=== PATIENT | male | born 1955 | race Caucasian/White ===

== ENCOUNTER 2023-05-30 14:01 | Observation (INO) | payer MEDICARE ==
[2023-05-30] MEDS ORDERED: ONDANSETRON 4 MG/2 ML VIAL IVP STA (14:34)
[2023-05-30] MEDS ORDERED: HYDROmorphone 0.5 MG/0.5 ML SYRINGE IVP STA (14:35)
--- NOTE | 2023-05-30 14:39 | ED ---
Abdominal Pain HPI - General Chief Complaint: Abdominal Pain Stated Complaint: Dizziness, Need Drainage for Liver Time Seen by Provider: 05/30/23 14:32 Source: patient, RN notes reviewed, old records reviewed Mode of arrival: ambulatory Limitations: no limitations - History of Present Illness Initial Comments: This is a 67-year-old male to the emergency department for evaluation today. Patient is today for evaluation regards to need for paracentesis. No pain weakness overall dehydration not feeling well. MD Complaint: abdominal pain -: hour(s) Location: diffuse Radiation: none Migration to: no migration Severity: moderate Severity scale (1-10): 7 Quality: sharp Consistency: constant Improves With: eating Worsens With: nothing Associated Symptoms: nausea, vomiting Treatments Prior to Arrival: other (0) - Related Data Previous Rx's Medication Instructions Recorded Furosemide [Lasix] 40 mg PO DAILY #30 tablet 06/01/23 Metoprolol Succinate (ER) [Toprol 50 mg PO BID #60 tab 06/01/23 XL] Midodrine [ProAmatine] 5 mg PO TID PRN #60 tablet 06/01/23 Spironolactone [Aldactone] 50 mg PO DAILY #30 tab 06/01/23 Allergies Allergy/AdvReac Type Severity Reaction Status Date / Time No Known Allergies Allergy Verified 05/30/23 17:39 Review of Systems ROS Statement: Those systems with pertinent positive or pertinent negative responses have been documented in the HPI. ROS Other: All systems not noted in ROS Statement are negative. Past Medical History Past Medical History: Hypertension, Liver Disease History of Any Multi-Drug Resistant Organisms: None Reported Past Surgical History: Back Surgery Past Psychological History: No Psychological Hx Reported Smoking Status: Current every day smoker Past Alcohol Use History: None Reported, Abuse Past Drug Use History: None Reported - Past Family History Father Family Medical History: Coronary Artery Disease (CAD) General Exam Limitations: no limitations General appearance: alert, in no apparent distress Head exam: Present: atraumatic, normocephalic, normal inspection Eye exam: Present: normal appearance, PERRL, EOMI. Absent: scleral icterus, con junctival injection, periorbital swelling ENT exam: Present: normal exam, mucous membranes moist Neck exam: Present: normal inspection. Absent: tenderness, meningismus, lymphadenopathy Respiratory exam: Present: normal lung sounds bilaterally. Absent: respiratory distress, wheezes, rales, rhonchi, stridor Cardiovascular Exam: Present: regular rate, normal rhythm, normal heart sounds. Absent: systolic murmur, diastolic murmur, rubs, gallop, clicks GI/Abdominal exam: Present: soft, normal bowel sounds. Absent: distended, tenderness, guarding, rebound, rigid Extremities exam: Present: normal inspection, full ROM, normal capillary refill. Absent: tenderness, pedal edema, joint swelling, calf tenderness Back exam: Present: normal inspection Neurological exam: Present: alert, oriented X3, CN II-XII intact Psychiatric exam: Present: normal affect, normal mood Skin exam: Present: warm, dry, intact, normal color. Absent: rash Course Vital Signs 05/30/23 05/30/23 05/30/23 14:06 19:05 22:11 Temperature 98.0 F 98.7 F 97.8 F Pulse Rate 90 82 81 Pulse Rate [ Pulse Oximetery ] Respiratory 18 16 16 Rate Blood Pressure 151/106 152/94 141/95 Blood Pressure [Left Arm] O2 Sat by Pulse 99 98 99 Oximetry 05/31/23 05/31/23 05/31/23 04:17 08:00 08:28 Temperature 98.2 F 98 F Pulse Rate 95 Pulse Rate [ 84 84 Pulse Oximetery ] Respiratory 18 16 16 Rate Blood Pressure 151/89 Blood Pressure 137/93 [Left Arm] O2 Sat by Pulse 95 98 Oximetry - Reevaluation(s) Reevaluation #1: 05/30/23 20:46 Record is reviewed Reevaluation #2: 05/30/23 20:46 Patient symptoms are unchanged here in the ER Reevaluation #3: 05/30/23 20:46 Patient informed of results and questions answered Reevaluation #4: 05/30/23 20:07 Was pt. sent in by a medical professional or institution (, PA, [employer], urgent care, hospital, or care home...) When possible be specific @ -no Did you speak to anyone other than the patient for history (EMS, parent, family, police, friend...)? What history was obtained from this source @ -no Did you review nursing and triage notes (agree or disagree)? Why? @ -agree Are old charts reviewed (outside hosp., previous admission, EMS record, old EKG, old radiological studies, urgent care reports/EKG's, care home records)? Report findings @ -yes Differential Diagnosis (chest pain, altered mental status, abdominal pain women, abdominal pain men, vaginal bleeding, weakness, fever, dyspnea, syncope, headache, dizziness, GI bleed, back pain, seizure, CVA, palpatations, mental health, musculoskeletal)? @ -prior EKG interpreted by me (3pts min.). @ -no X-rays interpreted by me (1pt min.). @ -no CT interpreted by me (1pt min.). @ -no U/S interpreted by me (1pt. min.). @ -no What testing was considered but not performed or refused? (CT, X-rays, U/S, labs)? Why? @ -none What meds were considered but not given or refused? Why? @ -none Did you discuss the management of the patient with other professionals (professionals i.e. , PA, [employer], lab, RT, psych nurse, director of social work, drafting supervisor, teacher, air [employer] senior officer, telephonic nurse case manager)? Give summary @ -no Was smoking cessation discussed for >3mins.? @ -no Was critical care preformed (if so, how long)? @ -no Were there social determinants of health that impacted care today? How? (Homelessness, low income, unemployed, alcoholism, drug addiction, transportation, low edu. Level, literacy, decrease access to med. care, custodial, rehab)? @ -none Was there de-escalation of care discussed even if they declined (Discuss DNR or withdrawal of care, Hospice)? DNR status @ -no What co-morbidities impacted this encounter? (DM, HTN, Smoking, COPD, CAD, Cancer, CVA, ARF, Chemo, Hep., AIDS, mental health diagnosis, sleep apnea, morbid obesity)? @ -none Was patient admitted / discharged? Hospital course, mention meds given and route, prescriptions, significant lab abnormalities, going to OR and other pertinent info. @ - 67 male will be admitted for a for paracentesis as well as need for pain control and symptom management. Admitted Undiagnosed new problem with uncertain prognosis? @ -no Drug Therapy requiring intensive monitoring for toxicity (Heparin, Nitro, Insulin, Cardizem)? @ -no Were any procedures done? @ -no Diagnosis/symptom? @ -Abdominal ascites need for paracentesis Acute, or Chronic, or Acute on Chronic? @ -Acute Uncomplicated (without systemic symptoms) or Complicated (systemic symptoms)? @ -Complicated Side effects of treatment? @ -no Exacerbation, Progression, or Severe Exacerbation? @ -exacerbation Poses a threat to life or bodily function? How? (Chest pain, USA, AR, pneumonia, PE, COPD, DKA, ARF, appy, cholecystitis, CVA, Diverticulitis, Homicidal, Suicidal, threat to staff... and all critical care pts) @ -yes with significant liver cirrhosis and chronic disease Reevaluation #5: 05/30/23 20:09 Differential Abdominal Pain Men: Appendicitis, cholecystitis, diverticulosis, ischemic bowel, pancreatitis, hepatitis, UTI, gastroenteritis, AAA, incarcerated hernia, bowel obstruction, constipation, inflammatory bowel, hepatitis, peptic ulcer disease, splenic infarction, perforated viscus, testicular torsion, this is not meant to be an all-inclusive list - Consultations Consultation #1: Spoke with [facility] were agrees to admit this patient Medical Decision Making - Medical Decision Making 67 male will be admitted for a for paracentesis as well as need for pain control and symptom management. - Lab Data Result diagrams: 05/30/23 15:00 06/01/23 13:36 Lab Results 05/30/23 05/30/23 Range/Units 15:00 15:00 WBC 10.7 H (3.8-10.6) k/uL RBC 3.89 L (4.30-5.90) m/uL Hgb 12.2 L (13.0-17.5) gm/dL Hct 38.0 L (39.0-53.0) % MCV 97.6 (80.0-100.0) fL MCH 31.3 (25.0-35.0) pg MCHC 32.1 (31.0-37.0) g/dL RDW 14.2 (11.5-15.5) % Plt Count 459 H (150-450) k/uL MPV 7.2 Neutrophils % 73 % Lymphocytes % 17 % Monocytes % 6 % Eosinophils % 2 % Basophils % 0 % Neutrophils # 7.8 H (1.3-7.7) k/uL Lymphocytes # 1.8 (1.0-4.8) k/uL Monocytes # 0.6 (0-1.0) k/uL Eosinophils # 0.2 (0-0.7) k/uL Basophils # 0.0 (0-0.2) k/uL Plasma Lactic Acid Rolo 1.8 (0.7-2.0) mmol/L Disposition Clinical Impression: Abdominal pain, Ascites Disposition: ADMITTED IP TO THIS HOSP Condition: Fair Is patient prescribed a controlled substance at d/c from ED?: No Time of Disposition: 18:00
[2023-05-30 16:06] LABS: Basophils % (A) 0 %; Eosinophils # (A) 0.2 k/uL (0-0.7); Eosinophils % (A) 2 %; HGB 12.2 gm/dL (13.0-17.5); Lymphocytes # (A) 1.8 k/uL (1.0-4.8); Lymphocytes % (A) 17 %; MCH 31.3 pg (25.0-35.0); MCHC 32.1 g/dL (31.0-37.0); MCV 97.6 fL (80.0-100.0); Mean Platelet Volume 7.2; Monocytes # (A) 0.6 k/uL (0-1.0); Monocytes % (A) 6 %; Neutrophils # (A) 7.8 k/uL (1.3-7.7); Neutrophils % (A) 73 %; Platelet Count 459 k/uL (150-450); RBC 3.89 m/uL (4.30-5.90); RDW 14.2 % (11.5-15.5); WBC 10.7 k/uL (3.8-10.6)
[2023-05-30] MEDS ORDERED: NALOXONE 0.4 MG/ML 1 ML VIAL IV PRN (16:57)
[2023-05-30] MEDS ORDERED: ONDANSETRON 4 MG/2 ML VIAL IVP PRN (16:57)
[2023-05-30] MEDS ORDERED: MORPHINE SULFATE 4 MG/ML SYRINGE IV PRN (16:57)
[2023-05-30 17:42] LABS: ALT 10 U/L (4-49); African American GFR (CKD) >90 (>60 ml/min/1.73 sqM); Amylase 95 U/L (30-110); Anion Gap 8 mmol/L; Blood Urea Nitrogen 19 mg/dL (9-20); Calcium 9.1 mg/dL (8.4-10.2); Carbon Dioxide 24 mmol/L (22-30); Chloride 102 mmol/L (98-107); Glucose 92 mg/dL (74-99); Lipase 238 U/L (23-300); Non-African American GFR(CKD) >90 (>60 ml/min/1.73 sqM); Sodium 134 mmol/L (137-145); Total Bilirubin 0.5 mg/dL (0.2-1.3); Total Protein 6.9 g/dL (6.3-8.2)
[2023-05-30 18:03] LABS: AST 28 U/L (17-59); Alkaline Phosphatase 59 U/L (38-126); Potassium 4.5 mmol/L (3.5-5.1)
[2023-05-30 18:14] LABS: INR 1.1 (<1.2); Partial Thromboplastin Time 22.9 sec (22.0-30.0); Prothrombin Time 11.5 sec (10.0-12.5)
--- NOTE | 2023-05-30 18:42 | US ---
EXAMINATION TYPE: US abdomen limited DATE OF EXAM: 05/30/2023 COMPARISON: NONE CLINICAL INDICATION: Male, 67 years old with history of ascites; ascites check. Pt states para done april Technique: Four-quadrant ultrasound imaging for ascites. FINDINGS: Severe amount of anechoic ascites Seen throughout all 4 quadrants. IMPRESSION: Large amount of ascites.
[2023-05-31] MEDS ORDERED: traMADol 50 MG TAB PO PRN (12:20)
--- NOTE | 2023-05-31 12:26 | P.HPIM ---
History of Present Illness 67-year-old pleasant male with known history of alcoholic cirrhosis came in with ascites abdominal distention and pain significant abdominal distention without any fever patient doesn't take any diuretics at home and his only medication is metoprolol patient is presently not tachycardic. Patient will undergo paracentesis today patient is volume overloaded with ascites in the bilateral lower extremity edema secondary to cirrhosis. Patient doesn't take any diuretics at home blood pressure is within normal limits REVIEW OF SYSTEMS: CONSTITUTIONAL: No fever, no malaise, no fatigue. HEENT: No recent visual problems or hearing problems. Denied any sore throat. CARDIOVASCULAR: No chest pain, orthopnea, PND, no palpitations, no syncope. PULMONARY: No shortness of breath, no cough, no hemoptysis. GASTROINTESTINAL: No diarrhea, no nausea, no vomiting, no abdominal pain. NEUROLOGICAL: No headaches, no weakness, no numbness. HEMATOLOGICAL: Denies any bleeding or petechiae. GENITOURINARY: Denies any burning micturition, frequency, or urgency. MUSCULOSKELETAL/RHEUMATOLOGICAL: Denies any joint pain, swelling, or any muscle pain. ENDOCRINE: Denies any polyuria or polydipsia. The rest of the 14-point review of systems is negative. PHYSICAL EXAMINATION: GENERAL: The patient is alert and oriented x3, not in any acute distress. Thin built male HEENT: Pupils are round and equally reacting to light. EOMI. No scleral icterus. No conjunctival pallor. Normocephalic, atraumatic. No pharyngeal erythema. No thyromegaly. CARDIOVASCULAR: S1 and S2 present. No murmurs, rubs, or gallops. PULMONARY: Chest is clear to auscultation, no wheezing or crackles. ABDOMEN: Soft, nontender, distended with ascites, normoactive bowel sounds. No palpable organomegaly. MUSCULOSKELETAL: No joint swelling or deformity. EXTREMITIES: No cyanosis, clubbing, or pedal edema. NEUROLOGICAL: Gross neurological examination did not reveal any focal deficits. SKIN: No rashes. Assessment and plan -Volume overload secondary to cirrhosis: Patient undergo paracentesis patient was started on IV Lasix and Aldactone monitoring blood pressure and electrolytes -Alcoholic cirrhosis, supportive care as mentioned above -Hypertension patient will be resumed on beta alonso which she is taking at home -Hypervolemic hyponatremia expected to improve with IV Lasix. DVT prophylaxis: Early ambulation Past Medical History Past Medical History: Hypertension, Liver Disease History of Any Multi-Drug Resistant Organisms: None Reported Past Surgical History: Back Surgery Additional Past Surgical History / Comment(s): paracentesis in april 2023 at [facility] Past Anesthesia/Blood Transfusion Reactions: No Reported Reaction Past Psychological History: No Psychological Hx Reported Smoking Status: Current every day smoker Past Alcohol Use History: None Reported, Abuse Past Drug Use History: None Reported - Past Family History Father Family Medical History: Coronary Artery Disease (CAD) Medications and Allergies Home Medications Medication Instructions Recorded Confirmed Type Metoprolol Succinate (ER) [Toprol 100 mg PO DAILY 05/30/23 05/30/23 History Xl] Allergies Allergy/AdvReac Type Severity Reaction Status Date / Time No Known Allergies Allergy Verified 05/30/23 17:39 Physical Exam Vitals: Vital Signs Temp Pulse Pulse Resp BP BP Pulse Ox 05/31/23 08:28 98 F 84 16 137/93 98 05/31/23 08:00 84 16 05/31/23 04:17 98.2 F 95 18 151/89 95 05/30/23 22:11 97.8 F 81 16 141/95 99 05/30/23 19:05 98.7 F 82 16 152/94 98 05/30/23 14:06 98.0 F 90 18 151/106 99 Intake and Output 05/30/23 05/31/23 05/31/23 22:59 06:59 14:59 Other: Weight 56.699 kg Results CBC & Chem 7: 05/30/23 15:00 05/30/23 17:08 Labs: Abnormal Lab Results - Last 24 Hours (Table) 05/30/23 05/30/23 Range/Units 15:00 17:08 WBC 10.7 H (3.8-10.6) k/uL RBC 3.89 L (4.30-5.90) m/uL Hgb 12.2 L (13.0-17.5) gm/dL Hct 38.0 L (39.0-53.0) % Plt Count 459 H (150-450) k/uL Neutrophils # 7.8 H (1.3-7.7) k/uL Sodium 134 L (137-145) mmol/L Albumin 3.0 L (3.5-5.0) g/dL Thrombosis Risk Factor Assmnt - Choose All That Apply Each Factor Represents 1 point: Swollen legs (current) Each Risk Factor Represents 2 Points: Age 61-74 years Thrombosis Risk Factor Assessment Total Risk Factor Score: 3 Thrombosis Risk Factor Assessment Level: Moderate Risk
[2023-05-31] MEDS ORDERED: METOPROLOL SUCCINATE (ER) 50 MG TAB.ER.24H PO SCH (12:30)
[2023-05-31] MEDS: FUROSEMIDE 10 MG/ML 4 ML VIAL IV SCH ×2 (17:16→21:53)
--- NOTE | 2023-05-31 18:09 | US ---
EXAMINATION TYPE: US paracentesis abd w/image DATE OF EXAM: 05/31/2023 CLINICAL HISTORY: 67-year-old male with liver disease, large volume ascites, referred for therapeuti c paracentesis. The procedure was discussed with the patient. The risks, complications, benefits, and alternatives we re discussed and any questions were answered. Informed consent was obtained. The patient was placed s upine on the ultrasound table and prepped and draped in the usual sterile fashion. All elements of maximal barrier technique were utilized. Ultrasound was utilized to determine the precise skin entry site along the right lower quadrant/left flank. A 6 [place] safety centesis catheter and trocar technique was utilized to access the ascites collectio n in the right lower quadrant. Approximately 6.8 liters of straw-colored fluid was removed. Fluid collection was stopped prematurely due to patient being tired in bed and decreasing oxygen saturations. Catheter was removed, hemostasis obtained, and a dressing placed. The patient was stable throughout the procedure and remained stable upon discharge from Department of Radiology. IMPRESSION: Successful therapeutic paracentesis under ultrasound guidance. Only 6.8 L of fluid removed. Collectio n was prematurely stopped due to the patient becoming tired lying in bed and due to decreasing oxygen saturations.
[2023-05-31] MEDS: METOPROLOL SUCCINATE (ER) 50 MG TAB.ER.24H PO SCH (20:07)
[2023-06-01] MEDS ORDERED: SPIRONOLACTONE 25 MG TAB PO SCH (09:00)
[2023-06-01] MEDS: FUROSEMIDE 10 MG/ML 4 ML VIAL IV SCH (09:07)
[2023-06-01] MEDS: METOPROLOL SUCCINATE (ER) 50 MG TAB.ER.24H PO SCH (09:07)
[2023-06-01] MEDS: ALBUMIN HUMAN 25% 50 ML in EMPTY BAG 1 BAG IVPB SCH ×2 (09:40→10:48)
[2023-06-01] MEDS ORDERED: MIDODRINE 5 MG TAB PO STA (14:04)
[2023-06-01 14:17] VITALS: BP 89/56; PULSE 85; RESP 16; TEMP 97.8
[2023-06-01 14:23] LABS: ALT 9 U/L (4-49); AST 20 U/L (17-59); African American GFR (CKD) >90 (>60 ml/min/1.73 sqM); Albumin 2.2 g/dL (3.5-5.0); Alkaline Phosphatase 46 U/L (38-126); Anion Gap 7 mmol/L; Blood Urea Nitrogen 16 mg/dL (9-20); Calcium 8.2 mg/dL (8.4-10.2); Carbon Dioxide 29 mmol/L (22-30); Chloride 98 mmol/L (98-107); Glucose 124 mg/dL (74-99); Non-African American GFR(CKD) >90 (>60 ml/min/1.73 sqM); Potassium 3.4 mmol/L (3.5-5.1); Sodium 134 mmol/L (137-145); Total Bilirubin 0.5 mg/dL (0.2-1.3)
--- NOTE | 2023-06-04 05:55 | P.DS ---
Providers Date of admission: 05/30/23 16:58 Expected date of discharge: 06/01/23 Attending physician: Yung Quick Primary care physician: Stated None Hospital Course: Final diagnosis -Volume overload secondary to cirrhosis:status post paracentesis of approx 6 L removed -Alcoholic cirrhosis -Hypertension -Hypervolemic hyponatremia -gi prophylaxis -DVT prophylaxis -full code Discharge disposition Patient is being discharged in a stable condition with guarded prognosis to home. Patient will follow-up with his pcp in the outpatient setting upon discharge. Patient is to continue with outpatient follow up with GI as scheduled. Total time taken is greater than 35 minutes. Hospital course This is a 67-year-old male who was recently admitted with abdominal distention with ascites and being closely monitored. Patient evaluated by IR and underwent paracentesis of approx 6L and had post albumin. Blood pressure on the lower side and will be given midodrine as needed and instructed to follow up with GI and pcp outpatient. Patient also to continue on lasix and aldactone with repeat labs in the next few days. Patient reports to feeling improved and would like to go home. Currently no reports of chest pain, shortness of breath, or palpitations. Patient denies any dizziness or lightheadness. Patient is afebrile. No reports of nausea or vomiting and patient is tolerating diet. Patient will be discharged home today. Physical exam: Gen: This is a 67 year old who is awake, alert and oriented x3, thin built, well developed. appears older than stated age. HEENT: Head is atraumatic, normocephalic. Pupils equal, round. Sclerae is anicteric. NECK: Supple. No JVD. No lymphadenopathy. No thyromegaly. LUNGS: Clear to auscultation. No wheezes or rhonchi. No intercostal retractions. HEART: Regular rate and rhythm. No murmur. ABDOMEN: Soft. Bowel sounds are present. No masses. No tenderness. less distended. EXTREMITIES: No pedal edema. No calf tenderness. NEUROLOGICAL: Patient is awake, alert and oriented x3. Cranial nerves 2 through 12 are grossly intact. Please refer to medication reconciliation sheet for a list of medications. The impression and plan of care has been dictated by Codi Barton, Nurse Practitioner as directed. Dr. Ryan MD I have performed a history and examination and MDM of this patient, discussed the same with the dictator, and agree with the dictator's assessment and plan as written ,documented as a scribe. Based on total visit time, I have performed more than 50% of the visit. Patient Condition at Discharge: Fair Plan - Discharge Summary Discharge Rx Participant: No New Discharge Prescriptions: New Spironolactone [Aldactone] 50 mg PO DAILY #30 tab Furosemide [Lasix] 40 mg PO DAILY #30 tablet Metoprolol Succinate (ER) [Toprol XL] 50 mg PO BID #60 tab Midodrine [ProAmatine] 5 mg PO TID PRN #60 tablet PRN Reason: Hypotension Discontinued Metoprolol Succinate (ER) [Toprol Xl] 100 mg PO DAILY Discharge Medication List Furosemide [Lasix] 40 mg PO DAILY #30 tablet 06/01/23 [Rx] Metoprolol Succinate (ER) [Toprol XL] 50 mg PO BID #60 tab 06/01/23 [Rx] Midodrine [ProAmatine] 5 mg PO TID PRN #60 tablet 06/01/23 [Rx] Spironolactone [Aldactone] 50 mg PO DAILY #30 tab 06/01/23 [Rx] Follow up Appointment(s)/Referral(s): Nonstaff,Physician [REFERRING] - 1-2 days Ambulatory/Diagnostic Orders: Basic Metabolic Panel [LAB.AMB] Time Frame: 2 Days, Location: None Selected Patient Instructions/Handouts: Ascites (DC) Activity/Diet/Wound Care/Special Instructions: Activity Limited until follow-up Follow-up with primary care provider on discharge Continue taking medications as prescribed Repeat labs in the next few days to monitor kidney functions Follow-up with GI and nephrology outpatient use midodrine 5mg as need for low blood pressure. If systolic bp is 90 or less Discharge Disposition: HOME SELF-CARE
--- NOTE | 2023-06-08 23:47 | CDI ---
Documentation Clarification Form Date: 06/08/2023 11:30:16 PM From: Sarai Carrera RN, CCDS Email: [email or web address] Admit Date: 05/30/2023 04:58:00 PM Patient Name: Mj Velazquez Visit Number: [id number] Discharge Date: 06/01/2023 03:24:00 PM ATTENTION: The Clinical Documentation Specialists (CDI) and [facility] Coding Staff appreciate your assistance in clarifying documentation. Please respond to the clarification below the line at the bottom and electronically sign. The CDI & [facility] Coding staff will review the response and follow-up if needed. Please note: Queries are made part of the Legal Health Record. If you have any questions, please contact the author of this message via ITS. Dr. Yung Quick The patients principal diagnosis - the diagnosis that was chiefly responsible for the admission - has not been clearly identified and clarification is requested. The patient presented in Observation status on 05/30 for paracentesis. Admitted to inpatient on 06/01. History/Risk factors: 67-year-old male with known history of alcoholic cirrhosis came in with ascites, abdominal distention, pain and significant abdominal distention without any fever. Clinical Indicators: 05/31 Procedure: Successful therapeutic paracentesis under ultrasound guidance. Only 6.8 L of fluid removed. Collection was prematurely stopped due to the patient becoming tired lying in bed and due to decreasing oxygen saturations. The patient was stable throughout the procedure and remained stable upon discharge from Department of Radiology. 06/01 Discharge summary: Blood pressure on the lower side and will be given Midodrine as needed and instructed to follow up with GI and PCP outpatient. Patient also to continue on Lasix and Aldactone with repeat labs in the next few days. Patient reports to feeling improved and would like to go home. Use Midodrine 5mg as needed for low blood pressure if systolic BP is 90 or less Vital Signs: 05/31 pox 90%; 06/01 pox 93%; 05/30 BP 151/106; 05/31 BP 151/89; 06/01 BP 84/52-89/56 Treatment: O2 2-3LNC 05/31-06/01; IV Albumin x2 on 06/01; Midodrine 10mg po x1 on 06/01 In your professional opinion, can you please clarify which diagnosis, after study, was the reason chiefly responsible for the inpatient admission? [ ] Hypotension [ ] Alcoholic cirrhosis with ascites [ ] Respiratory insufficiency [ ] Other, please specify [ ] Unable to determine Send this to. Dr. Abdelrahman HLIL
--- NOTE | 2023-06-12 11:57 | CDI ---
Documentation Clarification Form Date: 06/08/2023 11:30:00 PM From: Sarai Carrera Admit Date: 05/30/2023 04:58:00 PM Patient Name: Mj Velazquez Visit Number: [id number] Discharge Date: 06/01/2023 03:24:00 PM ATTENTION: The Clinical Documentation Specialists (CDI) and [facility] Coding Staff appreciate your assistance in clarifying documentation. Please respond to the clarification below the line at the bottom and electronically sign. The CDI & [facility] Coding staff will review the response and follow-up if needed. Please note: Queries are made part of the Legal Health Record. If you have any questions, please contact the author of this message via ITS. Dr. Yung Quick The patients principal diagnosis - the diagnosis that was chiefly responsible for the admission - has not been clearly identified and clarification is requested. The patient presented in Observation status on 05/30 for paracentesis. Admitted to inpatient on 06/01. History/Risk factors: 67-year-old male with known history of alcoholic cirrhosis came in with ascites, abdominal distention, pain and significant abdominal distention without any fever. Clinical Indicators: 05/31 Procedure: Successful therapeutic paracentesis under ultrasound guidance. Only 6.8 L of fluid removed. Collection was prematurely stopped due to the patient becoming tired lying in bed and due to decreasing oxygen saturations. The patient was stable throughout the procedure and remained stable upon discharge from Department of Radiology. 06/01 Discharge summary: Blood pressure on the lower side and will be given Midodrine as needed and instructed to follow up with GI and PCP outpatient. Patient also to continue on Lasix and Aldactone with repeat labs in the next few days. Patient reports to feeling improved and would like to go home. Use Midodrine 5mg as needed for low blood pressure if systolic BP is 90 or less Vital Signs: 05/31 pox 90%; 06/01 pox 93%; 05/30 BP 151/106; 05/31 BP 151/89; 06/01 BP 84/52-89/56 Treatment: O2 2-3LNC 05/31-06/01; IV Albumin x2 on 06/01; Midodrine 10mg po x1 on 06/01 In your professional opinion, can you please clarify which diagnosis, after study, was the reason chiefly responsible for the inpatient admission? [ ] Hypotension [ x] Alcoholic cirrhosis with ascites [ ] Respiratory insufficiency [ ] Other, please specify [ ] Unable to determine (Template Last Revised: July 2020) MTDD
== END 2023-06-01 15:24 | disposition home or self-care (01) ==
LOC: EC 14:01 → 1SOBS 16:57 → OBSVTOIN 16:58 → 4SSUR 16:58 → UNDOADMOB 16:58 → INTOOBSV 16:58 → 4SSUR 18:49 → 1SOBS 05-31 07:39 → UNDODISIN 06-01 15:24
PROVIDERS: ADMIT Hospitalist; ATTEND Hospitalist
PROC: 0W9G3ZZ Drainage of Peritoneal Cavity, Percutaneous Approach (ICD-10-PCS; principal; 2023-05-31)
DX: K70.31 Alcoholic cirrhosis of liver with ascites (principal); E87.1 Hypo-osmolality and hyponatremia; I10 Essential (primary) hypertension; E87.70 Fluid overload, unspecified; F17.200 Nicotine dependence, unspecified, uncomplicated; Z79.899 Other long term (current) drug therapy
CPT/HCPCS: 96375 ×2; 96376; 96374; 99285; 36415; 80053 ×2; 82140; 82150; 83605; 83690; 85025; 85610; 85730; 76705; 49083; G0378 ×4; J1940; J2405; P9047; J1170

== ENCOUNTER 2023-07-13 10:30 | Emergency (ER) | payer MEDICARE ==
[2023-07-13 11:02] VITALS: RESP 18; TEMP 98.3
[2023-07-13 11:34] VITALS: BP 142/99
[2023-07-13 11:58] LABS: ALT 10 U/L (4-49); AST 26 U/L (17-59); African American GFR (CKD) >90 (>60 ml/min/1.73 sqM); Albumin 2.8 g/dL (3.5-5.0); Alkaline Phosphatase 56 U/L (38-126); Anion Gap 1 mmol/L; Blood Urea Nitrogen 18 mg/dL (9-20); Calcium 9.5 mg/dL (8.4-10.2); Carbon Dioxide 28 mmol/L (22-30); Chloride 107 mmol/L (98-107); Glucose 93 mg/dL (74-99); Non-African American GFR(CKD) >90 (>60 ml/min/1.73 sqM); Potassium 4.1 mmol/L (3.5-5.1); Sodium 136 mmol/L (137-145); Total Bilirubin 0.5 mg/dL (0.2-1.3); Total Protein 6.3 g/dL (6.3-8.2)
[2023-07-13 12:20] LABS: HCT 37.3 % (39.0-53.0); HGB 12.8 gm/dL (13.0-17.5); MCH 33.5 pg (25.0-35.0); MCHC 34.3 g/dL (31.0-37.0); MCV 97.6 fL (80.0-100.0); Mean Platelet Volume 7.7; Platelet Count 386 k/uL (150-450); RBC 3.83 m/uL (4.30-5.90); RDW 14.1 % (11.5-15.5)
--- NOTE | 2023-07-13 12:21 | US ---
EXAMINATION TYPE: US abdomen limited DATE OF EXAM: 07/13/2023 COMPARISON: NONE CLINICAL INDICATION: Male, 68 years old with history of ascities/abd distention; Ascites seen in all 4 quadrants IMPRESSION: Ascites
--- NOTE | 2023-07-13 12:50 | ED ---
Abdominal Pain HPI - General Chief Complaint: Abdominal Pain Stated Complaint: Adominal Pain Time Seen by Provider: 07/13/23 11:00 Source: patient, RN notes reviewed Mode of arrival: ambulatory Limitations: no limitations - History of Present Illness Initial Comments: Patient is a 68-year-old male presented to ER with a chief complaint of abdominal distention. Patiently recently underwent a paracentesis 1 month ago. He states he believes he needs another one. Patient also is endorsing a chest pressure from the ascites. Patient also states he is out of his Lasix. He is also endorsing mild peripheral edema. Denies any fevers, chills, shortness of breath, chest pain, urinary complaints, constipation/diarrhea. - Related Data Home Medications Medication Instructions Recorded Confirmed Metoprolol Succinate (ER) [Toprol 50 mg PO DAILY 07/13/23 07/13/23 XL] Previous Rx's Medication Instructions Recorded Midodrine [ProAmatine] 5 mg PO TID PRN #60 tablet 06/01/23 Furosemide [Lasix] 20 mg PO DAILY #7 tab 07/13/23 Allergies Allergy/AdvReac Type Severity Reaction Status Date / Time No Known Allergies Allergy Verified 07/13/23 12:15 Review of Systems ROS Statement: Those systems with pertinent positive or pertinent negative responses have been documented in the HPI. ROS Other: All systems not noted in ROS Statement are negative. Past Medical History Past Medical History: Hypertension, Liver Disease Additional Past Medical History / Comment(s): ascites, History of Any Multi-Drug Resistant Organisms: None Reported Past Surgical History: Back Surgery Additional Past Surgical History / Comment(s): paracentesis in april 2023 at [facility] Past Anesthesia/Blood Transfusion Reactions: No Reported Reaction Past Psychological History: No Psychological Hx Reported Smoking Status: Current every day smoker Past Alcohol Use History: None Reported, Abuse Past Drug Use History: None Reported - Past Family History Father Family Medical History: Coronary Artery Disease (CAD) General Exam Limitations: no limitations General appearance: alert, in no apparent distress Head exam: Present: atraumatic, normocephalic, normal inspection Respiratory exam: Present: normal lung sounds bilaterally. Absent: respiratory distress, wheezes, rales, rhonchi, stridor Cardiovascular Exam: Present: regular rate, normal rhythm, normal heart sounds. Absent: systolic murmur, diastolic murmur, rubs, gallop, clicks GI/Abdominal exam: Present: soft, distended, normal bowel sounds, other (Fluid wave present) Extremities exam: Present: normal inspection, full ROM, normal capillary refill, other (1+ pretibial pitting edema). Absent: tenderness, pedal edema, joint swelling, calf tenderness Neurological exam: Present: alert, oriented X3, CN II-XII intact Psychiatric exam: Present: normal affect, normal mood Skin exam: Present: warm, dry, intact, normal color. Absent: rash Course Vital Signs 07/13/23 07/13/23 07/13/23 10:49 11:30 13:45 Temperature 98.3 F Pulse Rate 90 80 Respiratory 18 18 18 Rate Blood Pressure 130/91 142/99 142/99 O2 Sat by Pulse 99 98 Oximetry Medical Decision Making - Medical Decision Making Was pt. sent in by a medical professional or institution (, PA, [employer], urgent care, hospital, or longterm...) When possible be specific @ -No Did you speak to anyone other than the patient for history (EMS, parent, family, police, friend...)? What history was obtained from this source @ -No Did you review nursing and triage notes (agree or disagree)? Why? @ -I reviewed and agree with nursing and triage notes Were old charts reviewed (outside hosp., previous admission, EMS record, old EKG, old radiological studies, urgent care reports/EKG's, longterm records)? Report findings @ -Yes, I reviewed patient's ER visit from 05/30/2023 patient was admitted and received paracentesis. Differential Diagnosis (chest pain, altered mental status, abdominal pain women, abdominal pain men, vaginal bleeding, weakness, fever, dyspnea, syncope, headache, dizziness, GI bleed, back pain, seizure, CVA, palpatations, mental health, musculoskeletal)? @ -Differential Abdominal Pain Men: Appendicitis, cholecystitis, diverticulosis, ischemic bowel, pancreatitis, hepatitis, UTI, gastroenteritis, AAA, incarcerated hernia, bowel obstruction, constipation, inflammatory bowel, hepatitis, peptic ulcer disease, splenic infarction, perforated viscus, testicular torsion, this is not meant to be an all-inclusive list EKG interpreted by me (3pts min.). @ -None X-rays interpreted by me (1pt min.). @ -None done CT interpreted by me (1pt min.). @ -None done U/S interpreted by me (1pt. min.). @ -Abdominal ultrasound interpreted by me shows ascites. What testing was considered but not performed or refused? (CT, X-rays, U/S, labs)? Why? @ -None What meds were considered but not given or refused? Why? @ -None Did you discuss the management of the patient with other professionals (professionals i.e. , PA, [employer], lab, RT, psych nurse, community mental health social worker, psychometrician, teacher, [employer]oc airspace control officer, correctional case records supervisor)? Give summary @ -Yes, I discussed this case with correctional case records supervisor Diana and interventional radiology nurse who assisted in scheduling outpatient procedures. Patient is scheduled for paracentesis on Sunday. Was smoking cessation discussed for >3mins.? @ -No Was critical care preformed (if so, how long)? @ -No Were there social determinants of health that impacted care today? How? (Homelessness, low income, unemployed, alcoholism, drug addiction, transportation, low edu. Level, literacy, decrease access to med. care, longterm, rehab)? @Previous alcoholism Was there de-escalation of care discussed even if they declined (Discuss DNR or withdrawal of care, Hospice)? DNR status @ -No What co-morbidities impacted this encounter? (DM, HTN, Smoking, COPD, CAD, Cancer, CVA, ARF, Chemo, Hep., AIDS, mental health diagnosis, sleep apnea, morbid obesity)? @ -Liver cirrhosis Was patient admitted / discharged? Hospital course, mention meds given and route, prescriptions, significant lab abnormalities, going to OR and other pertinent info. @ -Discharge. Patient is a 68-year-old male presented to ER with a chief complaint of abdominal distention. History and physical exam completed. Vitals stable. Patient's abdomen was noticeably distended on exam. Fluid wave present. Normal bowel sounds. No tenderness. Patient did have a mild yellow hue to skin. Patient no signs of acute distress. Labs obtained show hemoglobin of 12.8 which is improved from 12.2 on 05-30-2023. Albumin 2.8. All other labs unimpressive. Urinalysis unimpressive. Abdominal ultrasound significant for ascites. I discussed this case with case management and interventional radiology nurse who have patient scheduled for paracentesis on Sunday, 2023. Patient prescribed 7-day course of Lasix. I had instructed patient to not take Lasix on Sunday as this may cause complications with the paracentesis. Results discussed with patient, all questions answered. Patient be discharged in stable condition with follow-up on Sunday for paracentesis. Patient expressed understanding and agreement with care plan. Undiagnosed new problem with uncertain prognosis? @ -No Drug Therapy requiring intensive monitoring for toxicity (Heparin, Nitro, Insu angelica, Cardizem)? @ -No Were any procedures done? @ -No Diagnosis/symptom? @ -Ascites/liver cirrhosis/abdominal pain Acute, or Chronic, or Acute on Chronic? @ -Chronic Uncomplicated (without systemic symptoms) or Complicated (systemic symptoms)? @ -Uncomplicated Side effects of treatment? @ -No Exacerbation, Progression, or Severe Exacerbation? @ -No Poses a threat to life or bodily function? How? (Chest pain, [place], [place], pneumonia, PE, COPD, DKA, ARF, appy, cholecystitis, CVA, Diverticulitis, Homicidal, Suicidal, threat to staff... and all critical care pts) @ -No - Lab Data Result diagrams: 07/13/23 11:30 07/13/23 11:30 Lab Results 07/13/23 07/13/23 07/13/23 Range/Units 11:30 11:30 13:31 WBC 9.0 (3.8-10.6) k/uL RBC 3.83 L (4.30-5.90) m/uL Hgb 12.8 L (13.0-17.5) gm/dL Hct 37.3 L (39.0-53.0) % MCV 97.6 (80.0-100.0) fL MCH 33.5 (25.0-35.0) pg MCHC 34.3 (31.0-37.0) g/dL RDW 14.1 (11.5-15.5) % Plt Count 386 (150-450) k/uL MPV 7.7 Sodium 136 L (137-145) mmol/L Potassium 4.1 (3.5-5.1) mmol/L Chloride 107 (98-107) mmol/L Carbon Dioxide 28 (22-30) mmol/L Anion Gap 1 mmol/L BUN 18 (9-20) mg/dL Creatinine 0.78 (0.66-1.25) mg/dL Est GFR (CKD-EPI)AfAm >90 (>60 ml/min/1.73 sqM) Est GFR (CKD-EPI)NonAf >90 (>60 ml/min/1.73 sqM) Glucose 93 (74-99) mg/dL Calcium 9.5 (8.4-10.2) mg/dL Total Bilirubin 0.5 (0.2-1.3) mg/dL AST 26 (17-59) U/L ALT 10 (4-49) U/L Alkaline Phosphatase 56 (38-126) U/L Total Protein 6.3 (6.3-8.2) g/dL Albumin 2.8 L (3.5-5.0) g/dL Urine Color Yellow Urine Appearance Cloudy (Clear) Urine pH 5.5 (5.0-8.0) Ur Specific [place] 1.023 (1.001-1.035) Urine Protein Trace H (Negative) Urine Glucose (UA) Negative (Negative) Urine Ketones Negative (Negative) Urine Blood Negative (Negative) Urine Nitrite Negative (Negative) Urine Bilirubin Negative (Negative) Urine Urobilinogen <2.0 (<2.0) mg/dL Ur Leukocyte Esterase Negative (Negative) Urine RBC 29 H (0-5) /hpf Urine WBC 8 H (0-5) /hpf Ur Squamous Epith Cells <1 (0-4) /hpf Calcium Oxalate Crystal Occasional H (None) /hpf Hyaline Casts 3 H (0-2) /lpf Urine Mucus Moderate H (None) /hpf - Radiology Data Radiology results: report reviewed, image reviewed Disposition Clinical Impression: Abdominal pain, Ascites, Liver cirrhosis Disposition: HOME SELF-CARE Condition: Stable Additional Instructions: Radiology nursing to contact patient this afternoon regarding appointment on Sunday 07/16 at 9am for paracentesis. Appointment will last 2-3hrs and you will need a milk tanker driver will you. Do not take diuretics (Lasix) morning of procedure. If any questions please contact department at [phone]. Please return to the ER for any new or worsening symptoms. Do not take diuretics (Lasix) morning of procedure. Prescriptions: Furosemide [Lasix] 20 mg PO DAILY #7 tab Is patient prescribed a controlled substance at d/c from ED?: No Referrals: Aminta Owens MD [STAFF PHYSICIAN] - 1-2 days (Office will contact you regarding new patient appointment. If no phone call by 07-19 please call office. ) Diana Taveras MD [STAFF PHYSICIAN] - 08/13/23 4:00 pm (Please being insurance cards and ID and be prepaired to complete new patient paperwork. ) Luis Brand MD [Primary Care Provider] - 07/20/23 1:00 pm (telehealth appointment) Forms: Area PCPs Time of Disposition: 13:27
[2023-07-13 13:45] LABS: Appearance,Urine Cloudy (Clear); Bilirubin,Urine Negative (Negative); Blood,Urine Negative (Negative); Calcium Oxalate Crystals,Urine Occasional /hpf; Color,Urine Yellow; Glucose,Urine (UA) Negative (Negative); Hyaline Casts,Urine 3 /lpf (0-2); Ketones,Urine Negative (Negative); Leukocyte Esterase,Urine Negative (Negative); Mucus,Urine Moderate /hpf; Nitrite,Urine Negative (Negative); PH, Urine 5.5 (5.0-8.0); Protein,Urine Trace (Negative); RBC,Urine 29 /hpf (0-5); Specific Gravity,Urine 1.023 (1.001-1.035); Squamous Epithelial Cell,Urine <1 /hpf (0-4); Urobilinogen,Urine <2.0 mg/dL (<2.0); WBC,Urine 8 /hpf (0-5)
[2023-07-13 14:11] VITALS: PULSE 80
== END 2023-07-13 13:47 | disposition home or self-care (01) ==
LOC: EC 10:30
DX: K74.60 Unspecified cirrhosis of liver (principal); I10 Essential (primary) hypertension; F17.200 Nicotine dependence, unspecified, uncomplicated; Z79.899 Other long term (current) drug therapy
CPT/HCPCS: 36415; 76705; 80053; 81001; 85027; 99284

== ENCOUNTER 2023-07-16 09:12 | Day surgery (SDC) | payer MEDICARE ==
[2023-07-16 10:03] LABS: Mean Platelet Volume 7.4; Platelet Count 410 k/uL (150-450)
[2023-07-16 10:15] LABS: African American GFR (CKD) >90 (>60 ml/min/1.73 sqM); Non-African American GFR(CKD) >90 (>60 ml/min/1.73 sqM)
[2023-07-16 10:28] LABS: INR 1.2 (<1.2); Prothrombin Time 12.6 sec (10.0-12.5)
[2023-07-16 11:08] VITALS: RESP 16
[2023-07-16] MEDS: ALBUMIN HUMAN 25% 50 ML in EMPTY BAG 1 BAG IVPB SCH (11:17)
[2023-07-16 12:39] VITALS: BP 114/79; PULSE 88
--- NOTE | 2023-07-16 12:40 | US ---
EXAMINATION TYPE: US paracentesis abd w/image DATE OF EXAM: 07/16/2023 11:11 AM CLINICAL INDICATION:Male, 68 years old with history of R18.8 ascites; COMPARISON: 07/13/2023 ATTENDING: Dr. Titus Saunders PROCEDURE: Informed consent was obtained. The risks of the procedure were extensively explained incl uding risk of damage to surrounding bowel with perforation and need for additional procedures. Proced ure was performed in the ultrasound procedure suite. Ultrasound imaging of the abdomen demonstrate as citic fluid. An appropriate access site was localized to the right lower abdomen. Timeout was taken p er protocol. The skin was prepped and draped in the usual sterile fashion and then locally anesthetiz ed with 1% lidocaine. The peritoneal cavity was then accessed via a 5-Mongolian one-step needle/cathete r. Approximately 9000 cc of clear straw-colored fluid was obtained. Postprocedural imaging of the ab domen demonstrate a minimal amount of abdominal fluid. Patient tolerated procedure well without immediate complication. Hemostasis at the procedural site w as obtained with a sterile bandage placed. The patient was monitored in the holding area following th e procedure and was subsequently discharged in stable condition. IMPRESSION: Ultrasound guided paracentesis, with approximately 9000 cc of clear straw-colored fluid drained. No i mmediate complications were evident.
== END 2023-07-16 12:30 | disposition home or self-care (01) ==
LOC: RADPROMAIN 09:12
PROVIDERS: ATTEND Emergency Medicine
DX: R18.8 Other ascites (principal)
CPT/HCPCS: 82565; 85049; 85610; 36415; 49083; P9047

== ENCOUNTER 2023-08-21 10:18 | Day surgery (SDC) | payer MEDICARE ==
[2023-08-21 11:10] LABS: Mean Platelet Volume 7.6; Platelet Count 410 k/uL (150-450)
[2023-08-21 11:19] LABS: INR 1.1 (<1.2); Prothrombin Time 11.4 sec (10.0-12.5)
[2023-08-21 11:22] LABS: African American GFR (CKD) 88 (>60 ml/min/1.73 sqM); Non-African American GFR(CKD) 76 (>60 ml/min/1.73 sqM)
[2023-08-21 11:24] VITALS: TEMP 97.9
[2023-08-21] MEDS: ALBUMIN HUMAN 25% 50 ML in EMPTY BAG 1 BAG IVPB SCH (11:32)
--- NOTE | 2023-08-21 13:29 | US ---
EXAMINATION TYPE: US paracentesis abd w/image DATE OF EXAM: 08/21/2023 11:57 AM CLINICAL INDICATION:Male, 68 years old with history of R18.8 OTHER ASCITES; COMPARISON: 07/16/2023 ATTENDING: Dr. Titus Saunders PROCEDURE: Informed consent was obtained. The risks of the procedure were extensively explained incl uding risk of damage to surrounding bowel with perforation and need for additional procedures. Proced ure was performed in the ultrasound procedure suite. Ultrasound imaging of the abdomen demonstrate as citic fluid. An appropriate access site was localized to the right lower abdomen. Timeout was taken p er protocol. The skin was prepped and draped in the usual sterile fashion and then locally anesthetiz ed with 1% lidocaine. The peritoneal cavity was then accessed via a 5-Nigerian one-step needle/cathete r. Approximately 10.1 cc of serosanguineous fluid was obtained. Postprocedural imaging of the abdome n demonstrate a minimal amount of abdominal fluid. Patient tolerated procedure well without immediate complication. Hemostasis at the procedural site w as obtained with a sterile bandage placed. The patient was monitored in the holding area following th e procedure and was subsequently discharged in stable condition. IMPRESSION: Ultrasound guided paracentesis, with approximately 10.1 cc of serosanguineous fluid drained. Patholog y results pending. No immediate complications were evident.
[2023-08-21 13:40] VITALS: BP 136/79; PULSE 89; RESP 16
== END 2023-08-21 13:10 | disposition home or self-care (01) ==
LOC: RADPROMAIN 10:18
PROVIDERS: ATTEND Internal Medicine Gastroenterology
DX: R18.8 Other ascites (principal)
CPT/HCPCS: 82565; 85049; 85610; 36415; 49083; P9047

== ENCOUNTER → 2023-08-23 | Outpatient (CLI) | payer MEDICARE ==
[2023-08-23 10:01] LABS: HGB 12.7 g/dL (13.0-17.0); MCH 32.4 pg (27.0-32.0); MCHC 33.4 g/dL (32.0-37.0); MCV 96.9 FL (80.0-97.0); Mean Platelet Volume 9.4 FL (9.5-12.2); NRBC Per 100 WBC 0 X 10*3/uL (0.00-0.01); Platelet Count 432 X 10*3/uL (140-440); RBC 3.92 X 10*6/uL (4.40-5.60); RDW 13.3 % (11.5-14.5); WBC 11.04 X 10*3/uL (4.50-10.00)
[2023-08-23 10:29] LABS: ALT 5 U/L (10-49); AST 19 U/L (14-35); Albumin 3.3 g/dL (3.8-4.9); Albumin/Globulin Ratio 1.14 Ratio (1.60-3.17); Alkaline Phosphatase 50 U/L (41-126); Blood Urea Nitrogen 12.5 mg/dL (9.0-27.0); Calcium 9.7 mg/dL (8.7-10.3); Carbon Dioxide 26.4 mmol/L (21.6-31.8); Chloride 101 mmol/L (96-109); Globulin 2.9 g/dL (1.6-3.3); Glucose 106 mg/dL (70-110); Potassium 4.2 mmol/L (3.5-5.5); Sodium 137 mmol/L (135-145); Total Bilirubin 0.2 mg/dL (0.3-1.2); Total Protein 6.2 g/dL (6.2-8.2)
== END | disposition home or self-care (01) ==
LOC: LABWHC1 07:17
PROVIDERS: ATTEND Internal Medicine Gastroenterology
DX: K70.30 Alcoholic cirrhosis of liver without ascites (principal)
CPT/HCPCS: 36415; 80053; 82105; 85027

== ENCOUNTER 2023-09-20 13:18 | Day surgery (SDC) | payer MEDICARE ==
--- NOTE | 2023-09-20 13:51 | US ---
Ultrasound-guided paracentesis. DATE OF EXAM: 09/20/2023 CLINICAL HISTORY: Ascites Findings: Preliminary imaging demonstrated a small amount of ascites. The patient stated that he wished to defe r the procedure. IMPRESSION: Discontinued paracentesis.
[2023-09-20 14:34] VITALS: BP 154/78; PULSE 64; RESP 18; TEMP 97.9
== END 2023-09-20 14:00 | disposition home or self-care (01) ==
LOC: RADPROMAIN 13:18
PROVIDERS: ATTEND Internal Medicine Gastroenterology
DX: Z53.8 Procedure and treatment not carried out for other reasons (principal); R18.8 Other ascites
CPT/HCPCS: 76705

== ENCOUNTER 2023-10-18 13:12 | Day surgery (SDC) | payer MEDICARE ==
[2023-10-18] MEDS ORDERED: ALBUMIN HUMAN 25% 50 ML in EMPTY BAG 1 BAG IVPB SCH (13:15)
--- NOTE | 2023-10-18 13:55 | US ---
Ultrasound-guided paracentesis. DATE OF EXAM: 10/18/2023 CLINICAL HISTORY: Ascites Findings: Preliminary imaging demonstrated only a small amount of fluid within the abdomen. The patient wished to defer the procedure. IMPRESSION: Deferred paracentesis..
[2023-10-18 14:02] VITALS: BP 149/74; PULSE 75; RESP 16; TEMP 98.1
== END 2023-10-18 13:40 | disposition home or self-care (01) ==
LOC: RADPROMAIN 13:12
PROVIDERS: ATTEND Internal Medicine Gastroenterology
DX: Z53.8 Procedure and treatment not carried out for other reasons (principal); R18.8 Other ascites
CPT/HCPCS: 76705